=== PATIENT | male | born 1975 | race Caucasian/White ===

== ENCOUNTER 2020-02-02 13:00 | Day surgery (SDC) | payer OTHER | END 2020-02-02 15:47 | disposition home or self-care (01) | LOC: AMB-ENDOS 13:00 | PROVIDERS: ATTEND Colon & Rectal Surgery | DX: D12.5 Benign neoplasm of sigmoid colon (principal); K64.0 First degree hemorrhoids; Z12.11 Encounter for screening for malignant neoplasm of colon ==